=== PATIENT | male | born 1955 | race Caucasian/White ===

== ENCOUNTER 2022-08-07 14:13 | Outpatient (CLI) | payer BC | END 2022-08-07 14:14 | disposition home or self-care (01) | LOC: BICRAD 14:13 | PROVIDERS: ATTEND Family Medicine | DX: M43.16 Spondylolisthesis, lumbar region (principal) | CPT/HCPCS: 72120 ==

== ENCOUNTER 2024-05-18 16:00 | Outpatient (CLI) | payer MEDICARE, BC | END 2024-05-18 16:01 | disposition home or self-care (01) | LOC: SLEEPLAB 16:00 | PROVIDERS: ATTEND Family Medicine | DX: G47.33 Obstructive sleep apnea (adult) (pediatric) (principal); R53.83 Other fatigue; G47.61 Periodic limb movement disorder; R06.83 Snoring; G47.10 Hypersomnia, unspecified; I10 Essential (primary) hypertension; G47.00 Insomnia, unspecified; G47.31 Primary central sleep apnea | CPT/HCPCS: 95811 ==